=== PATIENT | female | born 1935 | race Two or more races ===

== ENCOUNTER 2016-08-10 15:04 | Emergency (ER) | payer BC, MEDICARE, OTHER ==
[~2016-08-10] VITALS: Ht 162.6 cm; Wt 65.0 kg
[~2016-08-10 15:04] MED LIST: IOHEXOL-300 100 ML BOTTLE ONE; SODIUM CHLORIDE 0.9% 10ML VIAL ONE
[2016-08-10 16:39] LABS: CLARITY URINE CLOUDY (CLEAR); COLOR URINE YELLOW (YELLOW); GLUCOSE URINE NEGATIVE (NEGATIVE); KETONES URINE NEGATIVE (NEGATIVE); LEUKOCYTE ESTERASE URINE 2+ (NEGATIVE); NITRITE URINE NEGATIVE (NEGATIVE); OCCULT BLOOD URINE NEGATIVE (NEGATIVE); PH URINE 6.5 (4.5-8.0); PROTEIN URINE NEGATIVE (NEGATIVE); SPECIFIC GRAVITY URINE 1.013 (1.005-1.030); UROBILINOGEN URINE 0.2 E.U./dL (0.2-1.0)
[2016-08-10 16:40] LABS: BASOPHILS % 0.9 % (0.0-2.0); DIFFERENTIAL COMMENT 0; EOSINOPHILS % 2.3 % (0.0-5.0); HEMATOCRIT. 39.1 % (36.0-48.0); HEMOGLOBIN. 13.4 g/dL (12.0-16.0); LYMPHOCYTES % 28.9 % (20.0-50.0); MEAN CORPUSCULAR HEMOGLOBIN 28.9 pg (28.0-32.0); MEAN CORPUSCULAR HGB CONC 34.3 g/dL (31.0-37.0); MEAN CORPUSCULAR VOLUME 84.3 fL (81.0-99.0); MEAN PLATELET VOLUME 9.8 fl (7.4-10.4); MONOCYTES % 9.1 % (2.0-8.0); NEUTROPHILS % 58.8 % (40.0-76.0); PLATELET 179 x1000/uL (130-400); RED BLOOD CELL COUNT 4.64 mill/uL (4.2-5.4); RED CELL DISTRIBUTION WIDTH 13.9 % (11.6-14.6)
[2016-08-10 16:55] LABS: ALANINE AMINOTRANSFERASE 26 IU/L (13-61); ALBUMIN 4.2 g/dL (3.4-5.0); ANION GAP 13; CALCIUM 9.4 mg/dL (8.5-10.1); CARBON DIOXIDE 28 mEq/L (21-32); CHLORIDE 106 mEq/L (98-107); INDEX HEMOLYSI 1 (1-3); INDEX ICTERIC 1 (1-4); INDEX LIPEMIC 1 (1-3); TROPONIN I < 0.02 ng/mL (0.00-0.04); UREA NITROGEN BLOOD 19 mg/dL (7-21); eGFR > 60 mL/min (>60)
[2016-08-10 17:02] LABS: BACTERIA URINE TRACE; RBC URINE 0-2 /hpf (0-2); SQUAMOUS EPITHELIAL CELL URINE 1+ /lpf (RARE/1+)
[2016-08-10 17:03] LABS: WBC URINE 15-25 /hpf (0-2)
[2016-08-10] MEDS ORDERED: AMLODIPINE 10MG TABLET PO ONE (18:30)
[2016-08-10] MEDS ORDERED: NITROFURANTOIN 100MG M/M CAPSULE PO ONE (19:00)
[2016-08-10] MEDS ORDERED: CLONIDINE 0.1MG TABLET PO ONE (22:00)
[2016-08-10 22:05] VITALS: BP 195/86
== END 2016-08-10 22:48 | disposition short-term general hospital (02) ==
LOC: ER 15:05
DX: R51 Headache (principal); I10 Essential (primary) hypertension; E04.1 Nontoxic single thyroid nodule; R00.1 Bradycardia, unspecified; R94.02 Abnormal brain scan; M54.2 Cervicalgia; E78.00 Pure hypercholesterolemia, unspecified; I51.7 Cardiomegaly; Z88.0 Allergy status to penicillin
CPT/HCPCS: 36415; 70450; 70491; 71010; 80053; 81001; 84484; 85025; 85610; 93005; 99285; A4216; Q9967

== ENCOUNTER 2022-08-14 12:23 | Emergency (ER) | payer OTHER ==
[~2022-08-14] VITALS: Ht 162.6 cm; Wt 65.5 kg
[2022-08-14] MEDS ORDERED: NICARDIPINE 40MG/200ML PREMIX 200 ML IV ONE (12:30)
[2022-08-14 13:44] LABS: EOSINOPHILS % 2.4 % (0.0-5.0); HEMATOCRIT. 43.4 % (36.0-48.0); HEMOGLOBIN. 14.6 g/dL (12.0-16.0); LYMPHOCYTES % 19.5 % (20.0-50.0); MEAN CORPUSCULAR HEMOGLOBIN 28.8 pg (28.0-32.0); MEAN CORPUSCULAR VOLUME 85.7 fL (81.0-99.0); MEAN PLATELET VOLUME 10.4 fl (7.4-10.4); MONOCYTES % 7.7 % (2.0-8.0); NEUTROPHILS % 69.4 % (40.0-76.0); PLATELET 204 x1000/uL (130-400); RED BLOOD CELL COUNT 5.06 mill/uL (4.2-5.4); RED CELL DISTRIBUTION WIDTH 14.9 % (11.6-14.6)
[2022-08-14 13:56] LABS: CHLORIDE 105 mEq/L (98-107)
[2022-08-14 14:07] LABS: CREATINE KINASE 59 IU/L (26-192); ETHANOL BLOOD < 10 mg/dL
[2022-08-14 14:10] LABS: CLARITY URINE CLEAR (CLEAR); COLOR URINE YELLOW (YELLOW); KETONES URINE TRACE (NEGATIVE); LEUKOCYTE ESTERASE URINE NEGATIVE (NEGATIVE); NITRITE URINE NEGATIVE (NEGATIVE); OCCULT BLOOD URINE NEGATIVE (NEGATIVE); PH URINE 7.5 (4.5-8.0); PROTEIN URINE NEGATIVE (NEGATIVE); SPECIFIC GRAVITY URINE 1.021 (1.005-1.030); UROBILINOGEN URINE 0.2 E.U./dL (0.2-1.0)
[2022-08-14 14:26] LABS: *AMPHETAMINES SCREEN URINE NEGATIVE (NEGATIVE); *BARBITURATES SCREEN URINE NEGATIVE (NEGATIVE); *BENZODIAZEPINES SCREEN URINE NEGATIVE (NEGATIVE); *COCAINE SCREEN URINE NEGATIVE (NEGATIVE); CANNABINOID URINE SCREEN NEGATIVE (NEGATIVE); METHADONE URINE SCREEN NEGATIVE (NEGATIVE); OPIATES URINE SCREEN NEGATIVE (NEGATIVE); PHENCYCLIDINE URINE SCREEN NEGATIVE (NEGATIVE)
[2022-08-14] MEDS ORDERED: IOHEXOL-350 100 ML BOTTLE ONE ×2 (14:28→14:30)
[2022-08-14 15:01] LABS: PROTHROMBIN TIME 10.5 sec (9.6-11.0)
[2022-08-14 17:53] VITALS: BP 152/55
== END 2022-08-14 18:32 | disposition short-term general hospital (02) ==
LOC: ER 12:35
DX: R20.0 Anesthesia of skin (principal); I10 Essential (primary) hypertension; E78.00 Pure hypercholesterolemia, unspecified; Z88.0 Allergy status to penicillin
CPT/HCPCS: 36415; 70450; 70496; 70498; 71045; 71275; 80053; 80305; 80320; 81003; 82550; 83605; 83880; 84484; 85025; 85610; 86850; 86900; 86901; 93005; 99291; Q9967; G0480

== ENCOUNTER 2023-09-20 02:14 | Emergency (ER) | payer OTHER ==
[~2023-09-20] VITALS: Ht 165.1 cm; Wt 70.0 kg
[2023-09-20 02:16] VITALS: O2SAT 94
[2023-09-20] MEDS: METHOCARBAMOL 500MG TABLET PO ONE (03:10)
[2023-09-20] MEDS: ACETAMINOPHEN 325MG TABLET PO ONE (03:13)
[2023-09-20] MEDS ORDERED: IBUP-2328 MT (05:02)
[2023-09-20] MEDS: METHOCARBAMOL 500MG TABLET PO NR (05:08)
[2023-09-20 05:17] VITALS: BP 168/61; PULSE 58; RESP 15; TEMP 98
[2023-09-20 05:21] LABS: BASOPHILS % 1.1 % (0.0-2.0); DIFFERENTIAL COMMENT 0; EOSINOPHILS % 1.8 % (0.0-5.0); HEMATOCRIT. 40.2 % (36.0-48.0); HEMOGLOBIN. 13.1 g/dL (12.0-16.0); LYMPHOCYTES % 21.3 % (20.0-50.0); MEAN CORPUSCULAR HEMOGLOBIN 28.2 pg (28.0-32.0); MEAN CORPUSCULAR HGB CONC 32.7 g/dL (31.0-37.0); MEAN CORPUSCULAR VOLUME 86.4 fL (81.0-99.0); MONOCYTES % 11.5 % (2.0-8.0); NEUTROPHILS % 64.3 % (40.0-76.0); PLATELET 185 x1000/uL (130-400); RED BLOOD CELL COUNT 4.65 mill/uL (4.2-5.4); RED CELL DISTRIBUTION WIDTH 14.8 % (11.6-14.6); WHITE BLOOD COUNT 5.6 x1000/uL (4.5-11.0)
[2023-09-20 05:22] LABS: CHLORIDE 107 mEq/L (98-107); POTASSIUM 3.4 mEq/L (3.5-5.1); SODIUM 141 mEq/L (136-145)
[2023-09-20 05:23] LABS: CALCIUM 9.6 mg/dL (8.7-10.4); CARBON DIOXIDE 27 mEq/L (21-32)
[2023-09-20 05:28] LABS: CREATININE 0.7 mg/dL (0.6-1.0); GLUCOSE 120 mg/dL (70-105); UREA NITROGEN BLOOD 16 mg/dL (9-23)
== END 2023-09-20 05:17 | disposition home or self-care (01) ==
LOC: ER 02:19
DX: R51.9 Headache, unspecified (principal); I10 Essential (primary) hypertension; M54.30 Sciatica, unspecified side; E78.00 Pure hypercholesterolemia, unspecified; Z88.0 Allergy status to penicillin
CPT/HCPCS: 36415; 71045; 80048; 85025; 99284

== ENCOUNTER 2025-01-28 10:32 | Emergency (ER) | payer OTHER ==
[~2025-01-28] VITALS: Ht 157.5 cm; Wt 55.0 kg
[~2025-01-28 10:32] MED LIST changes: +IBUP-2328 MT; -IOHEXOL-300 100 ML BOTTLE ONE; -SODIUM CHLORIDE 0.9% 10ML VIAL ONE
[2025-01-28 10:33] VITALS: O2SAT 96
[2025-01-28 11:32] LABS: BASOPHILS % 0.3 % (0.0-2.0); EOSINOPHILS % 2.2 % (0.0-5.0); HEMATOCRIT. 38.5 % (36.0-48.0); HEMOGLOBIN. 12.5 g/dL (12.0-16.0); LYMPHOCYTES % 23.7 % (20.0-50.0); MEAN PLATELET VOLUME 10.1 fl (7.4-10.4); MONOCYTES % 7.5 % (2.0-8.0); NEUTROPHILS % 66.3 % (40.0-76.0); PLATELET 196 x1000/uL (130-400); RED BLOOD CELL COUNT 4.42 mill/uL (4.2-5.4); RED CELL DISTRIBUTION WIDTH 14.1 % (11.6-14.6)
[2025-01-28 11:48] LABS: TROPONIN I HIGH SENSITIVITY 12 ng/L (3.0-34)
[2025-01-28 12:30] LABS: CREATININE 0.6 mg/dL (0.6-1.0)
[2025-01-28 12:31] LABS: UREA NITROGEN BLOOD 11 mg/dL (9-23)
[2025-01-28 12:32] LABS: ASPARTATE AMINOTRANSFERASE 17 IU/L (<34); BILIRUBIN DIRECT 0.4 mg/dL (<=3.0)
[2025-01-28 12:33] LABS: BILIRUBIN TOTAL 1.1 mg/dL (0.1-1.0); PROTEIN TOTAL 6.6 g/dL (6.0-8.3)
[2025-01-28 12:59] VITALS: TEMP 36.8
[2025-01-28 13:44] LABS: CLARITY URINE CLEAR (CLEAR); COLOR URINE YELLOW (YELLOW); GLUCOSE URINE NEGATIVE (NEGATIVE); KETONES URINE TRACE (NEGATIVE); NITRITE URINE NEGATIVE (NEGATIVE); OCCULT BLOOD URINE NEGATIVE (NEGATIVE); PH URINE 7.5 (4.5-8.0); PROTEIN URINE NEGATIVE (NEGATIVE); SPECIFIC GRAVITY URINE 1.012 (1.005-1.030); UROBILINOGEN URINE 0.2 E.U./dL (0.2-1.0)
[2025-01-28 13:45] LABS: LEUKOCYTE ESTERASE URINE 1+ (NEGATIVE)
[2025-01-28 14:04] LABS: SQUAMOUS EPITHELIAL CELL URINE FEW /lpf (RARE/1+)
[2025-01-28 14:08] LABS: BACTERIA URINE TRACE; MUCUS URINE TRACE /lpf (< = 2+)
[2025-01-28 14:09] LABS: RBC URINE NONE SEEN /hpf (0-2)
[2025-01-28 14:17] VITALS: BP 175/55; PULSE 75; RESP 16; O2SAT 100
[2025-01-28] MEDS: CEFTRIAXONE 1GM/50ML 50 ML IV ONE (14:55)
[2025-01-28 16:27] LABS: TROPONIN I HIGH SENSITIVITY 25 ng/L (3.0-34)
== END 2025-01-28 16:15 | disposition hospice, inpatient (51) ==
LOC: ER 10:42 → EDBEDREQ 11:20 → CANBEDREQ 14:41 → ER 16:15
DX: R53.1 Weakness (principal); R20.2 Paresthesia of skin; E78.00 Pure hypercholesterolemia, unspecified; I10 Essential (primary) hypertension; Z88.0 Allergy status to penicillin
CPT/HCPCS: 99285; 96365; 70450; 71045; 80076; 80048; 81003; 83690; 83735; 85025; 84484; 36415; 93005; J0696